=== PATIENT | female | born 1985 | race Caucasian/White ===

== ENCOUNTER 2016-11-02 16:50 | Emergency (ER) | payer OTHER ==
[~2016-11-02] VITALS: Ht 167.6 cm; Wt 49.4 kg
[2016-11-02 17:04] VITALS: BP 156/74
--- NOTE | 2016-11-02 18:40 | ED EAR COMPLAINT ---
History of Present Illness General Chief Complaint: Ear Complaints Stated Complaint: LFT EAR PAIN Source: patient Exam Limitations: no limitations Vital Signs & Intake/Output Vital Signs & Intake/Output Vital Signs Date Time Temp Pulse Resp B/P Pulse O2 O2 Flow FiO2 Ox Delivery Rate 11/02 1842 Room Air Room Air 11/02 1704 98.3 120 18 156/74 98 Room Air Reconcile Medications Amoxicillin/Potassium Clav (Augmentin 875-125 Tablet) 875 MG-125 MG TABLET 1 TAB PO BID OTITIS MEDIA Meloxicam 15 MG TABLET 1 TAB PO DAILY PRN PAIN Triage Note: COMPLAINS OF L EAR PAIN CONSTANT SINCE LAST PM , STATES THAT SHE CANT TAKE NARCOTICS THAT SHE IS ON SUBOXONE . Triage Nurses Notes Reviewed? yes Onset: Gradual Duration: constant Timing: single episode today Severity: severe Severity Numbers: 8 : No Patient currently breastfeeds: No HPI: Patient is a 30-year-old female who presents emergency room with complaints of gradual onset of persistent 24-hour history of left ear pain and states that she is "hungry" Denies any mechanism of injury denies any fever chills sore throat difficulty breathing difficulty swallowing Patient states that she is on Suboxone (BLAKE DENNY) Past History Travel History Traveled to [place] past 21 day No Medical History Any Pertinent Medical History? none Neurological: NONE EENT: NONE Cardiovascular: NONE Respiratory: NONE Gastrointestinal: NONE Hepatic: NONE Renal: NONE Musculoskeletal: NONE Endocrine: NONE Blood Disorders: NONE Cancer(s): NONE INCIDENT RESPONSE COORDINATOR/Reproductive: NONE Surgical History Surgical History: non-contributory Psychosocial History What is your primary language German Tobacco Use: Current Daily Use Daily Tobacco Use Amount/Type: => 5 Cigarettes daily ETOH Use: denies use Illicit Drug Use: denies illicit drug use Family History Hx Contributory? No (BLAKE DENNY) Review of Systems Review of Systems Constitutional: Reports: no symptoms. EENTM: Reports: see HPI, ear pain. Denies: ear discharge, ear redness. Respiratory: Reports: no symptoms. Cardiovascular: Reports: no symptoms. GI: Reports: no symptoms. Genitourinary: Reports: no symptoms. Musculoskeletal: Reports: no symptoms. Skin: Reports: no symptoms. Neurological/Psychological: Reports: no symptoms. Hematologic/Endocrine: Reports: no symptoms. Immunologic/Allergic: Reports: no symptoms. All Other Systems: Reviewed and Negative (BLAKE DENNY) Physical Exam Physical Exam General Appearance: no apparent distress, comfortable Ears: Left: Tympanic dull. Right: canal normal, Tympanic normal. Comments: Well-developed well-nourished person in no acute distress HEENT: extraocular motion intact, no nystagmus. Pupils equally round and reactive to light and accommodation. Nose is atraumatic. Left external anatomy of the ear nontender normal external auditory canal and tympanic membrane intact , DULLNESS NOTED, Pharynx normal. No swelling or edema. Neck: Supple, no lymphadenopathy, normal range of motion without pain or tenderness Back: Nontender, no CVA tenderness. Cardiovascular: Regular rate and rhythms no murmurs rubs or gallops, normal JVP Respiratory: Chest nontender. No respiratory distress.breath sounds clear to auscultation bilaterally Extremity: No edema, no calf tenderness to palpation, normal and equal pulses. Neuro: Alert oriented x3, motor sensory normal, Skin: No appreciable rash on exposed skin, skin is warm and dry. Psych: Mood and affect is normal, memory and judgment is normal. (BLAKE DENNY) Progress Differential Diagnoses I considered the following diagnoses in my evaluation of the patient: [Otitis media, otitis externa, mastoiditis, sepsis, labyrinthitis, tympanic membrane rupture] Plan of Care: Patient will be treated for concerns of uNcomplicated left otitis media Initial ED EKG: none (BLAKE DENNY) Departure Departure Disposition: HOME OR SELF CARE Condition: Stable Clinical Impression Primary Impression: Ear pain, left Secondary Impressions: Otitis media of left ear Referrals: PATIENT HAS NO PRIMARY CARE DR (PCP/Family) Additional Instructions: As discussed begin the prescription on meloxicam as directed for pain and inflammation. Begin the prescription of Augmentin as directed for the full course. If no better in 3 days follow-up with her primary care doctor. Prescription is waiting at [facility] pharmacy. If symptoms worsen return to the emergency room Departure Forms: Customer Survey General Discharge Information Prescriptions: Current Visit Scripts Amoxicillin/Potassium Clav (Augmentin 875-125 Tablet) 1 TAB PO BID #20 TAB Meloxicam 1 TAB PO DAILY PRN PAIN #20 TAB (BLAKE DENNY) PA/STEREOTYPER Co-Sign Statement Statement: ED Attending supervision documentation- [] I saw and evaluated the patient. I have also reviewed all the pertinent lab results and diagnostic results. I agree with the findings and the plan of care as documented in the RADHA's/STEREOTYPER's documentation. [X] I have reviewed the ED Record and agree with the PA's/STEREOTYPER's documentation. [] Additions or exceptions (if any) to the PAs/STEREOTYPER's note and plan are summarized below: [] (POLI DICKSON,CURT Santillan)
[2016-11-02] MEDS ORDERED: MELOXICAM15 M1 PO (18:46)
[2016-11-02] MEDS ORDERED: AUGMENTIN 875-1 EACH PO (18:46)
== END 2016-11-02 19:05 ==
LOC: ERH 16:50
DX: H66.92 Otitis media, unspecified, left ear (principal)

== ENCOUNTER 2018-02-21 10:00 | Inpatient (IN) | payer OTHER ==
[~2018-02-21] VITALS: Ht 167.6 cm; Wt 70.3 kg
[~2018-02-21 10:00] MED LIST: AUGMENTIN 875-1 EACH PO; MELOXICAM15 M1 PO
--- NOTE | 2018-02-21 10:51 | History & Physical Pre-Op ---
General Information and HPI MD Statement: I have seen and personally examined NACHO NAIR and documented this H&P. The patient is a 32 year old F who presented with a patient stated chief complaint of BL[]. History of Present Illness: 32-year-old 4 para [id number] at 39 weeks gestation Allergies/Medications Allergies: Coded Allergies: No Known Allergies (02/21/18) Home Med list Amoxicillin/Potassium Clav (Augmentin 875-125 Tablet) 875 MG-125 MG TABLET 1 TAB PO BID OTITIS MEDIA Meloxicam 15 MG TABLET 1 TAB PO DAILY PRN PAIN Past History Medical History Neurological: NONE EENT: NONE Cardiovascular: NONE Respiratory: NONE Gastrointestinal: NONE Hepatic: NONE Renal: NONE Musculoskeletal: NONE Endocrine: NONE Blood Disorders: NONE Cancer(s): NONE PEDIATRIC MEDICAL ASSISTANT/Reproductive: NONE Isolation History: Standard Surgical History Pertinent Surgical History: non-contributory Past Family/Social History Psychosocial History Smoking Status: Current Everyday Smoker Review of Systems Review of Systems: NEGATIVE Exam & Diagnostic Data Physical Exam: 32-year-old 4 para 2011 at 39 weeks gestation with care that started with me at 7 months patient has had one visit with Dr. Nicolasa Davidson transferred she was received [place] as distributed from [place] [facility], [place] sporadically as was her care. Patient admits to 2 bags of crack a day. She has no obvious means of support. Patient has had irregular bleeding from the vagina for the last month. Her care visits have been difficult to obtain with multiple phone calls multiple reschedules. Patient is currently homeless and living in a car in [employer] parking lot. Patient has been given since 28 weeks the name of various shelters that would take women. Patient has not been interested. Nor has her significant other Jerry. Patient presents today with a history of positive group B strep for induction of labor with Pitocin at 3 cm patient has been explained that this is a favorable cervix and that she may have an epidural for pain management that social work and psychiatry will see her to aid her in the care of her . 4 days ago Nacho presented me with the paperwork for a records release deliberation program in [place]. I spoke with Stephie who said that Nacho has not been accepted by that program but that they will review with their physician her paperwork prior to excepting her for that program. Physical Exam General Appearance Alert Pelvic (FEMALE) Appearance Normal Assessment/Plan Assessment/Plan: 32-year-old 4 para 2011 with a known history of crack abuse with social issues and vaginal bleeding consistent with abruption and positive group B strep plan Pitocin ampicillin social work and psychiatry for possible withdrawal As Ranked By This Provider Problem List: 1.
[2018-02-21 10:57] LABS: ABSOLUTE BASOPHIL COUNT 0 /CUMM (0.0-0.2); ABSOLUTE EOSINOPHIL COUNT 0.1 /CUMM (0.0-0.7); ABSOLUTE GRANULOCYTE CT 4.4 /CUMM (1.4-6.5); ABSOLUTE LYMPH COUNT 1.7 /CUMM (1.2-3.4); ABSOLUTE MONOCYTE COUNT 0.6 /CUMM (0.10-0.60); BASOPHIL % 0.2 % (0.0-2.0); EOSINOPHIL % 1.3 % (0-5); GRANULOCYTE % 64.9 % (42.2-75.2); HEMATOCRIT 32.6 % (37-47); MEAN CORPUSCULAR HGB 31.1 PG (27.0-31.0); MEAN CORPUSCULAR HGB CONC 34.2 G/DL (33.0-37.0); MEAN CORPUSCULAR VOLUME 91.1 FL (81.0-99.0); MEAN PLATELET VOLUME 7.9 FL (7.4-10.4); PLATELET COUNT 220 /CUMM (130-400); RBC DISTRIBUTION WIDTH 13.2 % (11.5-14.5); RED BLOOD CELL CT 3.58 /CUMM (4.20-5.40); WHITE BLOOD CELL COUNT 6.8 /CUMM (4.8-10.8)
--- NOTE | 2018-02-21 12:08 | Cons- Psychiatry ---
Psychiatric Consult Date of Consult: 02/21/18 Reason for Consult: Management of cocaine withdrawal History of Present Illness: This 32-year-old female with a history of crack cocaine abuse has been admitted for induction secondary to vaginal bleeding consistent with possible abruption. Staff reports that the patient has been irritable and agitated. The patient was seen in her room and with her permission her significant other remained in the room and met with me alone afterwards. The patient reports that she has been using crack cocaine daily for "a long time". Last use was prior to admission. The patient reported that she was annoyed that she was getting answers to her questions. She denied craving substances. She was not willing to speak to me saying "I know how it works, you ask questions and write down anything you want to your book". Nursing staff was present and attempted to answer the patient's questions but she was unreceptive. She stated "you are not helping me, come back after I given ". Advised the patient that stuff is trying to work with her and help her manage her agitation. Encourage the patient to work with stop to open a channel of communication. Patient turned away, buried her head facing the pillow and the interview was terminated. She gave me permission to speak with her significant other. Patient's boyfriend reported that "she does better when she is known without and relaxed". He reports that the patient has a long history of addiction and of trauma. He also corroborates her crack cocaine dependence. He reports that the patient sometimes takes Neurontin to help her sleep. Further history was unobtainable. The patient is admitted care. Urine has been positive for cocaine on all visits. The patient has significant social difficulties. She is homeless. She has been provided with information on shelters but has not followed through. Reportedly she requested referral to a substance abuse program at her last visit but has not been accepted. Patient currently has strep throat. No other medical history of significance known. Allergies: Coded Allergies: strawberry (Severe, THROAT CLOSURE 02/21/18) latex (Mild, HIVES 02/21/18) Uncoded Allergies: NICOTINE PATCH (Severe, THROAT CLOSURE 02/21/18) Current Medications: Med Ampicillin 1,000 MG IV Q6H 02/21/18 1645 Sodium Chloride 100 ML Lactated Ringer's 1,000 ML IV Q8H 02/21/18 1015 Med *DC Ampicillin 2,000 MG IV ONCE ONE 02/21/18 1045 Sodium Chloride 100 ML Past History Past Medical History Neurological: NONE EENT: NONE Cardiovascular: NONE Respiratory: NONE Gastrointestinal: NONE Hepatic: NONE Renal: NONE Musculoskeletal: NONE Endocrine: NONE Blood Disorders: NONE Cancer(s): NONE SENIOR MECHANICAL ENGINEER/Reproductive: NONE Past Surgical History Surgical History: non-contributory Assessment/Plan Mental Status Orientation: Person, Place, Situation Mental Status Exam: The patient is a 32-year-old female with long unkempt hair. Dentition is extremely poor. She was agitated. Eye contact was poor. Speech was normal in rate, rhythm, volume and tone. She was regressed and manner. Affect was irritable, defensive. She was not suicidal or homicidal. Thought process was normal in tempo, concrete in form. There were no delusions or obsessions. Attention and concentration were poor. There is no perceptual abnormality. Impulse control is poor. Cognition is grossly intact. Insight is fair. Judgment poor but unimpaired. Lab Results: Lab Hct 32.6 % L 02/21/18 1024 Hgb 11.1 G/DL L 02/21/18 1024 MCH 31.1 PG H 02/21/18 1024 MCV 91.1 FL 02/21/18 1024 RBC 3.58 /CUMM L 02/21/18 1024 WBC 6.8 /CUMM 02/21/18 1024 Urine drug screen pending Impression: 32-year-old female with history of crack cocaine use admitted for induction secondary to possible abruption. Patient is agitated and oppositional. Symptoms are compounded withdrawal from cocaine. As mentioned obstetrics team is working with patient on psychosocial issues and treatment for his substance abuse. Provisional Treatment Plan: Although there is no treatment protocol for cocaine withdrawal per se, patient's often finds relief from sedating medication. Ultimate medication selection will be determined by ranch hand livestock. Possibilities include hydroxyzine 50 mg p.o. every 6 hours, quetiapine at either 25 or 50 mg p.o. q. 8R if necessary 6 hours. Both medications cause QT prolongation. Hospital clinical social work aide is meeting with the patient and will be involved in aftercare. Thank you for consulting us on this patient. Please do not hesitate to contact us if we can be of any further assistance.
--- NOTE | 2018-02-21 12:40 | PN- Obstetrical ---
Subjective Subjective: C/O CTX Objective Last 24 Hrs of Vital Signs/I&O Intake & Output 02/21 1600 02/21 0800 02/21 0000 Intake Total Output Total Balance Patient 155 lb Weight Physical Exam: PE THIN ADENTULOUS FEMALE HEENT PERRLA ABD SOFT EXT -EDEMA Obstetric Exam Dilation (cm): 3 Effacement (%): 80 Station: 0 Membranes: AROM Fluid: bloody show Multiple Gestation? No Contractions: Q 4 MINUTES Assessment/Plan Assessment/Plan ASSESS TERM BLEEDING PLAN ABRUPTION OBSEVRE FOR DELIVERY PITOCIN
--- NOTE | 2018-02-21 14:26 | Labor & Delivery Summary ---
Delivery Summary Vaginal Delivery: Vaginal: vertex Episiotomy/Lacerations: Episiotomy/Lacerations: none Placenta: Placenta: spontanteous, normal, 3 vessel, nuchal cord (x_), TABITHA COMPOUND LEFT ARM Anesthesia: none Additional Comments: S MECONIUM VIABLE FEMALE OVER INTACT PERINEUM CAN TIMES 1 TABITHA COMPOUND LEFT HAND .3 VESSEL CORD
[2018-02-22 09:01] LABS: ABSOLUTE BASOPHIL COUNT 0 /CUMM (0.0-0.2); ABSOLUTE EOSINOPHIL COUNT 0.1 /CUMM (0.0-0.7); ABSOLUTE GRANULOCYTE CT 4.9 /CUMM (1.4-6.5); ABSOLUTE LYMPH COUNT 1.9 /CUMM (1.2-3.4); ABSOLUTE MONOCYTE COUNT 0.6 /CUMM (0.10-0.60); BASOPHIL % 0.2 % (0.0-2.0); EOSINOPHIL % 1.2 % (0-5); GRANULOCYTE % 64.3 % (42.2-75.2); HEMATOCRIT 33.4 % (37-47); MEAN CORPUSCULAR HGB CONC 34.2 G/DL (33.0-37.0); MEAN CORPUSCULAR VOLUME 90.5 FL (81.0-99.0); MEAN PLATELET VOLUME 8.6 FL (7.4-10.4); PLATELET COUNT 208 /CUMM (130-400); RED BLOOD CELL CT 3.69 /CUMM (4.20-5.40); WHITE BLOOD CELL COUNT 7.6 /CUMM (4.8-10.8)
[2018-02-22] MEDS ORDERED: IBUPROFEN800 M1 PO (10:41)
--- NOTE | 2018-02-22 10:50 | PN- Obstetrical ---
Subjective Subjective: I feel like a prisoner I want to go out and smoke a cigarette Objective Last 24 Hrs of Vital Signs/I&O As per paper chart Physical Exam: Cachectic disheveled white female with dirty glasses HEENT anicteric Abdomen soft nontender Fundus firm nontender Lochia minimal Extremities negative edema negative Homans extremely poor toenail hygiene Obstetric Exam Dilation (cm): 0 Effacement (%): 0 Station: 0 Membranes: SROM Fluid: clear Multiple Gestation? No Contractions: NONE Assessment/Plan Assessment/Plan Assessment is status post normal spontaneous vaginal delivery depression addiction to crack plan is for discharge in a.m. with Anish follow-up with substance abuse patient has been offered Depo-Provera but declines secondary to significant other suggestion regarding bad for you because you smoke cigarettes
== END 2018-02-23 12:05 | DRG 560 ==
LOC: GNO 10:00
PROVIDERS: Specialist
PROC: 10E0XZZ Delivery of Products of Conception, External Approach (ICD-10-PCS; principal; 2018-02-21)
PROC: 3E033VJ Introduction of Other Hormone into Peripheral Vein, Percutaneous Approach (ICD-10-PCS; 2018-02-21)
DX: O45.93 Premature separation of placenta, unspecified, third trimester (principal); O99.324 Drug use complicating childbirth; O32.6XX0 Maternal care for compound presentation, not applicable or unspecified; O69.81X0 Labor and delivery complicated by cord around neck, without compression, not applicable or unspecified; O99.824 Streptococcus B carrier state complicating childbirth; F14.90 Cocaine use, unspecified, uncomplicated; O99.334 Smoking (tobacco) complicating childbirth; Z3A.39 39 weeks gestation of pregnancy; Z37.0 Single live birth; Z59.0 Homelessness; F17.200 Nicotine dependence, unspecified, uncomplicated
CPT/HCPCS: GNOS; 80307; 81001; 88307; J0290; J1885; J2210; J7120